=== PATIENT | female | born 1945 | race Caucasian/White ===

== ENCOUNTER → 2016-04-24 | Outpatient (CLI) | payer OTHER ==
--- NOTE | 2016-04-24 15:29 | DX ---
PA and lateral chest. Clinical History: Cough and fatigue, rule out pneumonia. Comparison Study: March 01, 2010.. Findings: The lungs are clear. No pleural disease identified. Heart size is normal. Mild degenerative changes present throughout the thoracic spine.. Impression: Negative chest.
== END ==
LOC: BMCIMAGING 14:47
PROVIDERS: ATTEND Internal Medicine
DX: R05 Cough (principal); R53.83 Other fatigue

== ENCOUNTER → 2017-08-06 | Outpatient (CLI) | payer OTHER | LOC: FIMAGING 08:02 | PROVIDERS: ATTEND Obstetrics & Gynecology | DX: Z12.31 Encounter for screening mammogram for malignant neoplasm of breast (principal) ==

== ENCOUNTER → 2017-12-08 | Outpatient (CLI) | payer OTHER | LOC: BHFA 13:00 | PROVIDERS: ATTEND Internal Medicine Cardiovascular Disease | DX: R55 Syncope and collapse (principal) ==

== ENCOUNTER 2018-06-04 23:46 | Emergency (ER) | payer OTHER ==
--- NOTE | 2018-06-05 00:02 | EDPHY ---
H & P Stated Complaint: Bilateral leg edema, R calf pain and edema x1 month Time Seen by Provider: 06/05/18 00:02 HPI/ROS: HPI CHIEF COMPLAINT: Leg swelling x1 month. HISTORY OF PRESENT ILLNESS: This patient is a 73-year-old female she arrives to the emergency room after receiving a phone call from her [facility] ([place], [place]) [facility] that states that she had a abnormal blood test she believes it is a D-dimer that was elevated. She went to her doctor's office today and had blood work done for leg swelling x1 month. Her right leg is more swollen than her left leg. She denies any chest pain or shortness of breath, denies any pleuritic pain. Denies hemoptysis, denies productive cough, denies fever. No history of DVT or PE. Past Medical History: Bipolar disorder, hypertension, Meniere's disease Past Surgical History: Multiple surgeries including inner ear surgery, knee surgery, toe surgery Social History: Denies drugs alcohol tobacco. Family History: Noncontributory ROS REVIEW OF SYSTEMS: 10 Systems were reviewed and negative with the exception of the elements mentioned in the history of present illness. Exam Constitutional triage nursing summary reviewed, vital signs reviewed, awake/ alert. Hypertension of at triage. Eyes normal conjunctivae and sclera, EOMI, PERRLA. HENT normal inspection, atraumatic, moist mucus membranes, no epistaxis, neck supple/ no meningismus, no raccoon eyes. Respiratory clear to auscultation bilaterally, normal breath sounds, no respiratory distress, no wheezing. Cardiovascular rate normal, regular rhythm, no murmur, no edema, distal pulses normal. Gastrointestinal soft, non-tender, no rebound, no guarding, normal bowel sounds, no distension, no pulsatile mass. Genitourinary no CVA tenderness. Musculoskeletal bilateral lower extremities reviewed. Warm, good distal pulse, good cap refill, no significant swelling however the right leg is slightly more swollen than left flank. No pitting edema. No significant calf swelling or tenderness. Good sensation intact bilaterally. no midline vertebral tenderness, full range of motion, no calf swelling, no tenderness of extremities, no meningismus, good pulses, neurovascularly intact. Skin pink, warm, & dry, no rash, skin atraumatic. Neurologic awake, alert and oriented x 3, AAOx3, moves all 4 extremities equally, motor intact, sensory intact, CN II-XII intact, normal cerebellar, normal vision, normal speech. Psychiatric normal mood/affect. Heme/Lymph/Immune no lymphadenopathy. Differential Diagnosis: Includes but is not limited to in a particular order DVT, PE, renal failure, liver failure, heart failure, peripheral edema Medical Decision Making: Plan for this patient she appears well, no evidence of heart failure on exam, complains of 1 month of bilateral lower extremity edema. Worse on the right leg than left leg. Plan for ultrasound bilateral lower extremity ultrasounds, rule out DVT, basic labs. Re-evaluate. Re-evaluation: Troponin negative. D-dimer negative. Ultrasound bilateral lower extremity show no evidence of DVTs. Popliteal cyst present. Ultrasound faxed to me me by direct Radiology time 1:32 a.m.. This shows no DVT in the bilateral lower extremities. This does show bilateral Calix cyst. Labs reviewed. The patient has normal kidney function, no evidence of liver failure. Clinically on exam no evidence of CHF. I do believe she has some peripheral edema mixed with Calix cyst. I do recommend she keeps her legs elevated. D-dimer negative. Follow up with her primary care doctor. She understands and is comfortable this plan. Source: Patient - Personal History Current Tetanus Diphtheria and Acellular Pertussis (TDAP): Yes Tetanus Vaccine Date: 2012 - Medical/Surgical History Hx Asthma: No Hx Chronic Respiratory Disease: No Hx Diabetes: No Hx Cardiac Disease: No Hx Renal Disease: No Hx Cirrhosis: No Hx Alcoholism: No Hx HIV/AIDS: No Hx Splenectomy or Spleen Trauma: No Other PMH: Menieres. HTN, Depression, Sinusitis, PNA, Essential tremor, Cleft lip and palate, Tubal Ligation, Menisectomy 1975;migraines;shingles;whooping cough - Social History Smoking Status: Former smoker Constitutional: Initial Vital Signs Temperature (C) 36.8 C 06/04/18 23:50 Heart Rate 66 06/04/18 23:50 Respiratory Rate 16 06/04/18 23:50 Blood Pressure 195/97 H 06/04/18 23:50 O2 Sat (%) 94 06/04/18 23:50 O2 Delivery Mode Room Air Allergies/Adverse Reactions: Sulfa (Sulfonamide Antibiotics) Allergy (Verified 06/04/18 23:49) Home Medications: Medication Instructions Recorded ALPRAZolam [Alprazolam Odt] 0.25 mg PO DAILY PRN 09/08/16 Aspirin EC [Aspirin EC 81 mg (*)] 81 mg PO DAILY 11/22/15 Cholecalciferol Vit D3 [Vitamin D3 5,000 units PO DAILY 11/22/15 (*)] Estradiol [Estradiol 1 MG (*)] 0.5 mg PO DAILY 11/22/15 LORazepam [Ativan (*)] 0.5 - 1 mg PO PRN PRN 11/22/15 Multivitamins [Multivitamin (*)] 1 each PO DAILY 11/22/15 Ondansetron Odt [Zofran Odt 4 mg 8 mg PO PRN PRN 11/22/15 (*)] Promethazine HCl [Phenergan] 25 mg RC PRN PRN 11/22/15 Sertraline HCl [Zoloft 100mg (*)] 100 - 150 mg PO DAILY 11/22/15 Valsartan/Hydrochlorothiazide 1 each PO DAILY 11/22/15 [Valsartan-Hctz 320-25 mg Tab] amLODIPine BESYLATE [Norvasc 2.5 2.5 mg PO DAILY 11/22/15 mg (*)] clonazePAM [Clonazepam] 0.25 - 0.5 mg PO PRN PRN 11/22/15 diphenhydrAMINE [Benadryl 25 MG 25 mg PO Q6 PRN 11/22/15 (*)] lamOTRIGine [Lamotrigine] 150 mg PO BID 11/22/15 medroxyPROGESTERone [Provera 2.5 2.5 mg PO Q2D 11/22/15 mg (*)] risperiDONE [Risperdal 0.25mg (*)] 0.25 mg PO PRN PRN 11/22/15 Meclizine HCl [Meclizine HCl 25 mg 12.5 - 25 mg PO Q6 PRN #60 tab 11/24/15 (RX,OTC)] Ondansetron Odt [Zofran Odt 4 mg 4 mg PO Q4 PRN #60 tab 11/24/15 (*)] Medical Decision Making - Data Points Laboratory Results: Laboratory Results 06/05/18 00:15 06/05/18 00:15 06/05/18 06/05/18 06/05/18 00:23 00:15 00:15 WBC RBC Hgb Hct MCV MCH MCHC RDW Plt Count MPV Neut % (Auto) Lymph % (Auto) [place] % (Auto) Eos % (Auto) Baso % (Auto) Nucleat RBC Rel Count Absolute Neuts (auto) Absolute Lymphs (auto) Absolute Monos (auto) Absolute Eos (auto) Absolute Basos (auto) Absolute Nucleated RBC Immature Gran % Immature Gran # PT 11.5 SEC L SEC (12.0-15.0) INR 0.87 (0.83-1.16) APTT 26.8 SEC SEC (23.0-38.0) D-Dimer 0.44 ug/mLFEU ug/mLFEU (0.00-0.50) Sodium 135 mEq/L mEq/L (135-145) Potassium 3.7 mEq/L mEq/L (3.5-5.2) Chloride 99 mEq/L mEq/L (97-110) Carbon Dioxide 24 mEq/l mEq/l (22-31) Anion Gap 12 mEq/L mEq/L (6-14) BUN 16 mg/dL mg/dL (7-23) Creatinine 0.6 mg/dL mg/dL (0.6-1.0) Estimated GFR > 60 Glucose 97 mg/dL mg/dL (70-100) Calcium 9.9 mg/dL mg/dL (8.5-10.4) Total Bilirubin 0.3 mg/dL mg/dL (0.1-1.4) Conjugated Bilirubin 0.3 mg/dL mg/dL (0.0-0.5) Unconjugated Bilirubin 0.0 mg/dL mg/dL (0.0-1.1) AST 25 IU/L IU/L (14-46) ALT 28 IU/L IU/L (9-52) Alkaline Phosphatase 73 IU/L IU/L (38-126) POC Troponin I 0.00 ng/mL ng/mL (0.00-0.08) NT-Pro-B Natriuret Pep 84 pg/mL pg/mL (0-125) Total Protein 7.0 g/dL g/dL (6.3-8.2) Albumin 4.2 g/dL g/dL (3.5-5.0) 06/05/18 00:15 WBC 5.32 10^3/uL 10^3/uL (3.80-9.50) RBC 4.64 10^6/uL 10^6/uL (4.18-5.33) Hgb 13.0 g/dL g/dL (12.6-16.3) Hct 38.3 % % (38.0-47.0) MCV 82.5 fL fL (81.5-99.8) MCH 28.0 pg pg (27.9-34.1) MCHC 33.9 g/dL g/dL (32.4-36.7) RDW 14.3 % % (11.5-15.2) Plt Count 211 10^3/uL 10^3/uL (150-400) MPV 10.4 fL fL (8.7-11.7) Neut % (Auto) 53.2 % % (39.3-74.2) Lymph % (Auto) 38.0 % % (15.0-45.0) [place] % (Auto) 6.0 % % (4.5-13.0) Eos % (Auto) 1.7 % % (0.6-7.6) Baso % (Auto) 0.9 % % (0.3-1.7) Nucleat RBC Rel Count 0.0 % % (0.0-0.2) Absolute Neuts (auto) 2.83 10^3/uL 10^3/uL (1.70-6.50) Absolute Lymphs (auto) 2.02 10^3/uL 10^3/uL (1.00-3.00) Absolute Monos (auto) 0.32 10^3/uL 10^3/uL (0.30-0.80) Absolute Eos (auto) 0.09 10^3/uL 10^3/uL (0.03-0.40) Absolute Basos (auto) 0.05 10^3/uL 10^3/uL (0.02-0.10) Absolute Nucleated RBC 0.00 10^3/uL 10^3/uL (0-0.01) Immature Gran % 0.2 % % (0.0-1.1) Immature Gran # 0.01 10^3/uL 10^3/uL (0.00-0.10) PT INR APTT D-Dimer Sodium Potassium Chloride Carbon Dioxide Anion Gap BUN Creatinine Estimated GFR Glucose Calcium Total Bilirubin Conjugated Bilirubin Unconjugated Bilirubin AST ALT Alkaline Phosphatase POC Troponin I NT-Pro-B Natriuret Pep Total Protein Albumin Point of Care Test Results: Chemistry 06/05/18 00:23 POC Troponin I 0.00 ng/mL ng/mL (0.00-0.08) Departure - Departure Disposition: Home, Routine, Self-Care Clinical Impression: Peripheral edema Bakers cyst Qualifiers: Laterality: unspecified laterality Qualified Code(s): M71.20 - Synovial cyst of popliteal space [Calix], unspecified knee Condition: Good Instructions: Bakers Cyst (ED), Leg Edema (ED) Additional Instructions: 1. Please follow up with your primary care doctor 2. Keep your legs elevated. 3. Return to the emergency room if you have worsening symptoms. Referrals: Carlton Olivarez MD [Primary Care Provider] - As per Instructions
[2018-06-05 00:24] LABS: PLATELET COUNT 211 10^3/uL (150-400)
[2018-06-05 00:33] LABS: INR 0.87 (0.83-1.16); PROTIME(PATIENT) 11.5 SEC (12.0-15.0)
[2018-06-05 02:41] VITALS: BP 165/91
== END 2018-06-05 03:26 | disposition home or self-care (01) ==
DX: M71.21 Synovial cyst of popliteal space [Baker], right knee (principal); M71.22 Synovial cyst of popliteal space [Baker], left knee; I10 Essential (primary) hypertension
CPT/HCPCS: 84484-ER